=== PATIENT | male | born 1995 | race Caucasian/White ===

== ENCOUNTER 2019-02-10 22:39 | Inpatient (IN) | payer BC ==
[~2019-02-10] VITALS: Ht 177.8 cm; Wt 90.9 kg
[2019-02-10 22:54] VITALS: Ht 177.8 cm; Wt 90.9 kg
--- NOTE | 2019-02-10 23:17 | NUR ---
PT PRESENTED TO ED FOR ABDOMINAL PAIN, NAUSEA, VOMITING, AND DIZZINESS X 30 MIN POLICY VALUE CALCULATOR. FAMILY STATES "HE WAS EATING WINGS AT HOME THEN HE JUST STATED WITH THE NAUSEA AND VOMITING. HE SAYS HIS STOMACH IS ON FIRE". PT IS ACTIVELY VOMITING AT BEDSIDE. PT APPEARS PALE AND DIAPHORETIC. PT STATES DIZZINESS AND GENERALIZED WEAKNESS AFTER HE BEGAN VOMITING. PT IS GAURDING STOMACH LAYING ON GURNEY. BREATHING EVEN AND UNLABORED. FAMILY AT BEDSIDE. WILL CONTINUE TO MONITOR. PT PROVIDED WITH NEW EMESIS BAG AND TISSUES. PT PROVIDED WITH BLANKET FOR COMFORT.
--- NOTE | 2019-02-10 23:55 | NUR ---
4MG ZOFRAN GIVEN PER PROTOCOL FOR N/V. MADE AWARE
--- NOTE | 2019-02-11 00:08 | NUR ---
MEDICATION ADMINISTERED PER MD ORDER. NS BOLUS STARTED
--- NOTE | 2019-02-11 00:10 | NUR ---
LAB AT BEDSIDE
--- NOTE | 2019-02-11 00:23 | NUR ---
PT REMOVED CARDIC MONITOR. EDUCATED PT ON NEED TO KEEP MONITOR ON. CM PLACED BACK ON PT. NSR ON MONITOR.
--- NOTE | 2019-02-11 00:24 | NUR ---
EDUCATED PT AND FAMILY ON NEED TO OBTAIN URINE SAMPLE. PT AND FAMILY ACKNOWLEDGED. URINAL PLACED AT BEDSIDE.
[2019-02-11 00:27] LABS: BASOPHIL % 0.1 % (0-2); PLATELET COUNT 154 x10^3mcL (130-400); RED CELL DISTRIBUTION WIDTH 12.4 % (11.5-14.5)
--- NOTE | 2019-02-11 00:34 | NUR ---
PT STILL C/O ABOMINAL PAIN AT THIS TIME. NO ACTIVE VOMITING NOTED. PT STILL APEARS UNCOMFORTABLE. ATTEMPTED TO PROVIDE COMFORT MEASURES FOR PT. DR GRAY MADE AWARE. WILL CONTINUE TO MONITOR. CM AND [address]
[2019-02-11 00:55] LABS: CALCIUM 10.2 mg/dL (8.5-10.1); CARBON DIOXIDE 21.5 mmol/L (21-32); CHLORIDE SERUM 103 mmol/L (98-107); CREATININE SERUM 1.2 mg/dL (0.7-1.3); GFR1 > 60 mL/min; GLUCOSE SERUM 150 mg/dL (74-106); SODIUM SERUM 145 mmol/L (136-145)
[2019-02-11 00:59] LABS: ALBUMIN 4.8 g/dL (3.4-5.0); ALKALINE PHOSPHATASE 84 U/L (46-116); ALT/SGPT 22 U/L (16-63); AST/SGOT 11 U/L (15-37); BILIRUBIN TOTAL 0.5 mg/dL (0.20-1.00); LIPASE 94 IU/L (73-393)
[2019-02-11 01:00] LABS: TOTAL PROTEIN, SERUM 8.5 g/dL (6.4-8.2)
--- NOTE | 2019-02-11 01:58 | NUR ---
PT BEGAN TO ACTIVELY VOMIT AT BEDSIDE AND C/O ADBOMINAL PAIN 06/06. DR GRAY MADE AWARE. AWAITING ORDERS AT THIS TIME.
--- NOTE | 2019-02-11 02:25 | NUR ---
PT MEDICATED PER MD ORDERS. PT AWAKE AND ALERT. CM AND [address] PT IN NAD. BREATHING EVEN AND UNLABORED. IV FLUIDS RUNNING AT ORDERED RATE. FAMILY AT BEDSIDE. WILL CONTINUE TO MONITOR.
--- NOTE | 2019-02-11 02:52 | NUR ---
NO ACTIVE VOMITING NOTED. PT OBSERVED RESTING WITH EYES CLOSED EASILY AROUSABLE. IV FLUIDS RUNNING AT ORDERED RATE. PT A&0X4 IN NAD. BREATHING EVEN AND UNLABORED. PT IN POSITION OF COMFORT. WILL CONTINUE TO MONITOR.
[2019-02-11 02:59] LABS: UA SPECIFIC GRAVITY 1.015 (1.005-1.035); microscopic required? YES; urine erythrocyte TRACE (NEGATIVE)
--- NOTE | 2019-02-11 03:47 | NUR ---
PT OBSERVED SLEEPING ON GURNEY IN NAD. BREATHING EVEN AND UNLABORED. PT EASILY AROUSABLE. CM AND [address] NO ACTIVE VOMITING AT THIS TIME. FAMILY AT BEDSIDE. WILL CONTINUE TO MONITOR.
--- NOTE | 2019-02-11 04:52 | NUR ---
PT RESTING IN POSITION OF COMFORT IN NAD. BREATHING EVEN AND UNLABORED. PT SLEEPING BUT EASILY AROUSABLE. NO ACTIVE VOMITING. LIGHTS OFF FOR PT COMFORT. WILL CONTINUE TO MONITOR.
--- NOTE | 2019-02-11 05:38 | NUR ---
REPORT GIVEN TO RAFI[facility] BOX
--- NOTE | 2019-02-11 05:45 | NUR ---
PT TAKEN TO [facility] BED 257B AT THIS TIME IN NAD VIA WHEELCHAIR. PT AWAKE AND ALERT, SPEAKING FULL CLEAR SENTENCES. BREATHING EVEN AND UNLABORED. PT VERBALIZED UNDERSTANDING OF PLAN OF CARE. PT ACCOMPANIED BY AMANDA EMT AND FAMILY MEMBER.
--- NOTE | 2019-02-11 05:47 | NUR ---
RECEIVED PT FROM ED. PT AOX4. DENIES BISHOP/DIZZINESS. MED SURG PT. DENIES CP/PRESSURE. IV TO LAC, INTACT AND PATENT. BED IN LOWEST POSITION. CALL LIGHT WITHIN REACH. WILL CONTINUE TO MONITOR.
[2019-02-11 05:55] VITALS: BP 147/69
--- NOTE | 2019-02-11 07:15 | NUR ---
AAO X4.C/O MILD ABD'L DISCOMFORT.NO N/V AT THE MOMENT.LUNGS CLEAR.PT NONE TELE.IV SALINE LOCKED.CALL LIGHT WITHIN REACH.INSTRUCTED TO CALL FOR ANY PAIN/DISCOMFORT.WILL CONTINUE TO MONITOR PT.
[2019-02-11 08:54] VITALS: BP 143/74
--- NOTE | 2019-02-11 09:32 | NUR ---
GAVE PT NORCO FOR C/O ABD'L PAIN AT 7/10 PAIN SCALE.WILL CONTINUE TO MONITOR.
--- NOTE | 2019-02-11 10:32 | NUR ---
RECHECKED PAIN LEVEL.CLAIMS TO BE COMFORTABLE AT THE MOMENT.
--- NOTE | 2019-02-11 11:00 | NUR ---
PT VOMITTED ONCE.WILL GIVE PHENERGAN ORDERED PRN.
--- NOTE | 2019-02-11 11:11 | NUR ---
GAVE PT PHENERGAN 12.5 MG IVP ORDERED PRN FOR C/O N/V.WILL CONTINUE TO MONITOR.
--- NOTE | 2019-02-11 12:11 | NUR ---
WENT TO RECHECK PT.CLAIMS TO BE MORE COMFORTABLE.NO NAUSEA AND VOMITTING NOTED.
[2019-02-11 16:15] LABS: AMPHETAMINE QUAL UR NONE DETECTED (See below)
[2019-02-11 16:55] VITALS: BP 111/68
--- NOTE | 2019-02-11 18:27 | NUR ---
NO SIGNIFICANT CHANGE NOTED.WILL ENDORSE TO NEXT SHIFT.
--- NOTE | 2019-02-11 18:29 | NUR ---
NO SIGNIFICANT CHANGE NOTED.WILL ENDORSE TO NEXT SHIFT.
--- NOTE | 2019-02-11 19:20 | NUR ---
REPORT RECIEVED FROM DAY SHIFT RN. PATIENT WAS SEEN AND IS RESTING COMFORTABLY IN BED. BREATHING EVEN ON ROOM AIR. NO SOB OR RESP DISTRESS NOTED. PATIENT STATES HE DOES HAVE FROM CHEST DISCOMFORT FROM DRY HEAVING YESTERDAY, BUT IT'S NOT HEART RELATED. DENIES PAIN. DENIES N/V. IV TO THE LAC, SL. PATENT AND INTACT. NO REDNESS OR SWELLING NOTED. COMFORT AND SAFETY MEASURES MAINTAINED. BED IS LOCKED AND IN THE LOWEST POSITION. SIDE RAILS UP X2. CALL LIGHT IS WITHIN REACH. WILL CONTINUE TO MONITOR.
[2019-02-11 20:57] VITALS: BP 133/82
--- NOTE | 2019-02-11 21:19 | NUR ---
PATIENT'S STOOL COLLECTED FOR C&S AND WBC. DIGITAL EXPERIENCE MANAGER WALKED IT DOWN TO THE LAB.
--- NOTE | 2019-02-12 00:36 | NUR ---
PATIENT IS RESTING IN BED COMFORTABLY. NO DISTRESS NOTED. BREATHING EVEN ON ROOM AIR. NO C/O PAIN. DENIES N/V. IV TO THE LAC INFUSING ABX WELL. PATENT AND INTACT. NO REDNESS OR SWELLING NOTED. SAFETY MEASURES IN PLACE. CALL LIGHT IS WITHIN REACH. WILL CONTINUE TO MONITOR
[2019-02-12 06:00] VITALS: BP 130/82
[2019-02-12 06:28] LABS: CARBON DIOXIDE 25.6 mmol/L (21-32); CHLORIDE SERUM 105 mmol/L (98-107); CREATININE SERUM 1.2 mg/dL (0.7-1.3); GFR1 > 60 mL/min; GLUCOSE SERUM 145 mg/dL (74-106); POTASSIUM SERUM 3.5 mmol/L (3.5-5.1); SODIUM SERUM 143 mmol/L (136-145)
[2019-02-12 06:34] LABS: BASOPHIL % 0.3 % (0-2); PLATELET COUNT 167 x10^3mcL (130-400); RED CELL DISTRIBUTION WIDTH 12.6 % (11.5-14.5)
--- NOTE | 2019-02-12 06:52 | NUR ---
PATIENT SLEPT IN LONG INTERVALS THROUGHOUT THE NIGHT. NO ACUTE CHANGES NOTED. BREATHING EVEN ON ROOM AIR. NO DISTRESS NOTED. IV TO THE LAC INFUSING ABX WELL. PATENT AND INTACT. NO C/O PAIN THROUGHOUT THE NIGHT. DENIES N/V. COMFORT AND SAFETY MEASURS MAINTAINED. WILL ENDORSE CARE TO DAY SHIFT RN. CALL LIGHT IS WITHIN REACH.
--- NOTE | 2019-02-12 07:02 | NUR ---
C/O PAIN IN ABD AND NECK. PATIENT IS SPITTING UP SPUTUM/VOMITING SCANT AMOUNT. SCHEDULED REGLAN WAS ALREADY GIVE. PATIENT STATES, "MY STOMACH FEELS LIKE IT'S SPINNING." PATIENT IS REQUESTING MORPHINE. ADMINSITERED PRESCRIBED. EDUCATED PATIENT THAT DROWSINESS MAY OCCUR. PATIENT IS ALSO AWARE THAT N/V IS A POSS SIDE EFFECT. PATIENT VERBALIZED UNDERSTANDING. WILL ENDORSE REASSESSMENT TO DAY SHIFT RN.
--- NOTE | 2019-02-12 07:15 | NUR ---
RECEIVED PT IN SEVERE ABD'L PAIN AT 10/10 PAIN SCALE.CLAIM MORPHINE THAT WAS GIVEN BY NOC RN WAS NOT WORKING.ALSO VOMITTED X2.WILL GIVE PHENERGAN ORDERED PRN.LUNGS CLEAR.PT NONE-TELE.IV SALINE LOCKED.CALL LIGHT WITHIN REACH.INSTRUCTED TO CALL FOR ANY PAIN/DISCOMFORT.WILL CONTINUE TO MONITOR PT.
--- NOTE | 2019-02-12 07:26 | NUR ---
GAVE PHENERGAN 12.5 IVP FOR C/O N/V.
--- NOTE | 2019-02-12 07:45 | NUR ---
WENT TO RECHECK PT CLAIMS TO FEEL A LOT BETTER AFTER THE PHENERGAN.
[2019-02-12 09:05] VITALS: BP 145/78
--- NOTE | 2019-02-12 09:45 | NUR ---
CONSENT SIGNED FOR EGD.INSTRUCTED PT TO BE NPO.
--- NOTE | 2019-02-12 10:15 | NUR ---
REPORT GIVEN TO GI NURSE.
--- NOTE | 2019-02-12 10:53 | NUR ---
PT WENT DOWN TO GI LAB FOR EGD.
--- NOTE | 2019-02-12 11:09 | NUR ---
TALKED TO CLAIMS EGD IS NORMAL.PT HAS GALLSTONES.WILL NEED SURGICAL CONSULT.CALLED LEFT A MESSAGE.
[2019-02-12 12:01] LABS: ALBUMIN 4.5 g/dL (3.4-5.0)
--- NOTE | 2019-02-12 12:08 | NUR ---
PT BACK FR GI S/P EGD.DX:NORMAL.V/S= T=97.4,RP=656/70 (78),HR=77,RR=16, GLT5=333%.FAMILY AT BEDSIDE.INSTRUCTED PT TO KEEP NPO FOR HIDA SCAN.CALL LIGHT WITHIN REACH.WILL CONTINUE TO MONITOR PT.
[2019-02-12 12:25] LABS: BILIRUBIN DIRECT 0.18 mg/dL (0.0-0.2); BILIRUBIN TOTAL 0.89 mg/dL (0.20-1.00); TOTAL PROTEIN, SERUM 8.3 g/dL (6.4-8.2)
--- NOTE | 2019-02-12 13:17 | NUR ---
TALKED TO PT WILL HAVE SURGERY TOMORROW AT 12 NOON.CONSENT SIGNED.ALSO CANCELLED THE HIDA SCAN.
--- NOTE | 2019-02-12 13:28 | NUR ---
PAGED FOR + H PYLORI.LEFT A MESSAGE.
--- NOTE | 2019-02-12 14:40 | NUR ---
INFORMED OF THE H-PYLORI +. PER WILL ORDER ANTIBIOTIC TOMORROW.ALSO INFORMED HIM ABOUT CANCELLING THE HIDA SCAN AND WILL DO LAP JUANJO TOMORROW.
[2019-02-12 18:55] VITALS: BP 144/82
--- NOTE | 2019-02-12 20:58 | NUR ---
PATIENT RECEIVED AWAKE, ALERT, ORIENTED X4 IN BED. C/O ABDOMINAL PAIN. FAMILY MEMBER AT THE BEDSIDE. RESPIRATION EVEN AND UNLABORED, ON ROOM AIR. VOIDING FREELY WITHOUT DIFFICULTY. AMBULATORY. SKIN DRY AND INTACT. SALINE LOCK TO LEFT ANTECUBITAL AREA PATENT AND INTACT. ON FULL LIQUID DIET. WILL CONTINUE TO MONITOR.
--- NOTE | 2019-02-12 21:08 | NUR ---
PATIENT COMPLAINED OF SHARP, ABDOMINAL PAIN, 10/10 AND NAUSEA. MEDICATED WITH TORADOL 15 MG IVP AND PHENERGAN 12.5 MG IVP ORDERED. WILL CONTINUE TO MONITOR.
[2019-02-12 21:20] VITALS: BP 156/98
[2019-02-13 05:38] VITALS: BP 147/69
[2019-02-13 06:25] LABS: BASOPHIL % 0.3 % (0-2); PLATELET COUNT 172 x10^3mcL (130-400); RED CELL DISTRIBUTION WIDTH 12.4 % (11.5-14.5)
[2019-02-13 06:49] LABS: ALBUMIN 4.4 g/dL (3.4-5.0); ALKALINE PHOSPHATASE 71 U/L (46-116); ALT/SGPT 32 U/L (16-63); AST/SGOT 12 U/L (15-37); BILIRUBIN TOTAL 1.1 mg/dL (0.20-1.00); CALCIUM 9.6 mg/dL (8.5-10.1); CHLORIDE SERUM 104 mmol/L (98-107); CREATININE SERUM 1.1 mg/dL (0.7-1.3); GFR1 > 60 mL/min; GLUCOSE SERUM 100 mg/dL (74-106); LIPASE 291 IU/L (73-393); POTASSIUM SERUM 3.8 mmol/L (3.5-5.1); SODIUM SERUM 141 mmol/L (136-145); TOTAL PROTEIN, SERUM 8.1 g/dL (6.4-8.2)
--- NOTE | 2019-02-13 06:58 | NUR ---
PATIENT RESTING IN BED. RESPIRATION EVEN AND UNLABORED, ON ROOM AIR. DENIES PAIN AT THIS TIME. ON NPO, FOR SURGERY THIS AM. RE-INSERTED A NEW IV SITE ON THE LEFT HAND. CHLORHEXIDINE BATH DONE. ASSISTED WITH NEEDS. SAFETY OBSERVED. PLACED BED IN THE LOWEST POSITION. PLACED CALL LIGHT WITHIN REACH AT ALL TIMES.
--- NOTE | 2019-02-13 07:30 | NUR ---
PT ENDORSE TO ME THIS MORNING. LAYING IN BED RESTING. AA/O X4 BREATHING EVEN AND UNLABORED ON RA, NO ACUTE RESP DISTRESS OR SOB NOTED. MEDSURG. DENIES ANY CP OR PRESSURE. BOWEL SOUNDS ACTIVE IN ALL FOUR QUADS, MEDICATED PER EMAR FOR ABD PAIN AT THIS TIME. VOIDS FREELY. AMB. IV TO HE L HAND INTACT AND PATENT. NO REDNESS OR SWELLING NOTED. WILL CONTINUE PLAN OF CARE.
[2019-02-13 08:54] VITALS: BP 152/90
[2019-02-13 09:43] VITALS: BP 133/86
--- NOTE | 2019-02-13 11:56 | NUR ---
PT BEING TAKEN TO GI LAB FOR PROCEDURE. HEPLOCKED PT. BREATHING EVEN AND UNLABORED ON RA. NO ACUTE RESP DISTRESS OR SOB NOTED. FAMILY BY HIS SIDE. WILL CONTINUE TO MONITOR WHEN PT RETURNS.
[2019-02-13 17:00] VITALS: BP 150/75
--- NOTE | 2019-02-13 17:00 | NUR ---
PT BACK FROM GI LAB. BREATHING EVEN AND UNLABORED ON RA. NO ACUTE RESP DISTRESS OR SOB NOTED. VS 150/75, HR 79, RESP 16, DENIES ANY CP OR PRESSURE/ OR ABD PAIN, MEDICATED PER EMAR. RECONNECTED PT BACK TO D5-45% AT 100ML/HR,WILL CONTINUE TO MONITOR. FAMILY AT BEDSIDE.
--- NOTE | 2019-02-13 19:25 | NUR ---
RECEIVED PT FROM PREVIOUS SHIFT NURSE. PT AOX4. DENIES BISHOP/DIZZINESS. MED SURG PT. DENIES CP/PRESSURE. DENIES SOB/DIFFICULTY BREATHING, ON RA. IV TO L. HAND, INTACT AND PATENT. BED IN LOWEST POSITION. CALL LIGHT WITHIN REACH. WILL CONTINUE TO MONITOR.
--- NOTE | 2019-02-13 19:32 | NUR ---
NO ACUTE CHANGES, NO ACUTE RESP DISTRESS OR SOB NOTED.DENIES ANY ABD PAIN OR DISCOMFORT/ MEDICATED PER EMAR. WILL ENDORSE TO INCOMING RN.
[2019-02-13 21:00] VITALS: BP 143/96
[2019-02-14 05:36] VITALS: BP 143/94
[2019-02-14 06:31] LABS: BASOPHIL % 0.1 % (0-2); PLATELET COUNT 169 x10^3mcL (130-400); RED CELL DISTRIBUTION WIDTH 12.4 % (11.5-14.5)
[2019-02-14 06:57] LABS: ALBUMIN 4.3 g/dL (3.4-5.0); ALKALINE PHOSPHATASE 84 U/L (46-116); ALT/SGPT 144 U/L (16-63); AST/SGOT 144 U/L (15-37); BILIRUBIN TOTAL 1.69 mg/dL (0.20-1.00); CALCIUM 9.7 mg/dL (8.5-10.1); CARBON DIOXIDE 25.5 mmol/L (21-32); CHLORIDE SERUM 100 mmol/L (98-107); GFR1 > 60 mL/min; GLUCOSE SERUM 119 mg/dL (74-106); POTASSIUM SERUM 3.3 mmol/L (3.5-5.1); SODIUM SERUM 139 mmol/L (136-145); TOTAL PROTEIN, SERUM 8.1 g/dL (6.4-8.2)
--- NOTE | 2019-02-14 07:30 | NUR ---
PT ENDORSE TO ME THIS MORNING. LAYING IN BED RESTING. AA/O X4, BREATHING EVEN AND UNLABORED ON RA, NO ACUTE RESP DISTRESS OR SOB NOTED. REMAINS MEDSURG. BOWEL SOUNDS ACTIVE IN ALL FOUR QUADS, DENIES ANY ABD PAIN OR DISCOMFORT/ MEDICATED PER EMAR. 4 SMALL INCISIONS NOTED/ CDI. BOWEL SOUNDS ACTIVE IN ALL FOUR QUADS. VOIDS FREELY. ENCOURAGING PT TO AMB MUSCH POSSIBLE AND TO USE I.S. PT AGREED. IV TO THE L HAND INTACT AND PATENT. WILL CONTINUE TO MONITOR.
[2019-02-14 08:43] VITALS: BP 169/109
[2019-02-14 09:51] VITALS: BP 142/63
[2019-02-14 12:58] VITALS: BP 142/63
--- NOTE | 2019-02-14 14:48 | NUR ---
DISCHARGE INSTRUCTIONS GIVEN TO PT INCLUDING MEDICAL FOLLOW-UP W/ DR. LAWRENCE. NEW PRESCRIPTION REVIEWED W/ THE PATIENT. ADDITIONAL EDUCATIONAL MATERIALS GIVEN TO THE PT. PT VERBALIZES UNDERSTANDING. IV REMOVED FROM THE LEFT HAND, CATHETER INTACT, NO ERYTHEMA/SWELLING NOTED. INSTRUCTED PT TO CALL WHEN PT IS READY TO GO
== END 2019-02-14 14:56 | disposition home or self-care (01) | DRG 419 ==
LOC: ED 22:39 → MU 02-11 03:31
PROVIDERS: Emergency Medicine; Internal Medicine Gastroenterology; Surgery; ADMIT Internal Medicine
PROC: 0DB68ZX Excision of Stomach, Via Natural or Artificial Opening Endoscopic, Diagnostic (ICD-10-PCS; principal; 2019-02-12 10:30)
PROC: 0FT44ZZ Resection of Gallbladder, Percutaneous Endoscopic Approach (ICD-10-PCS; 2019-02-13)
DX: K80.00 Calculus of gallbladder with acute cholecystitis without obstruction (principal); K52.9 Noninfective gastroenteritis and colitis, unspecified; E87.6 Hypokalemia; I10 Essential (primary) hypertension; R73.9 Hyperglycemia, unspecified; F12.90 Cannabis use, unspecified, uncomplicated; D72.829 Elevated white blood cell count, unspecified; Z90.49 Acquired absence of other specified parts of digestive tract; Z79.899 Other long term (current) drug therapy
CPT/HCPCS: 43235; 87046; 87046-59; 94150; G0378; J0330; J0690; J1170; J1200; J1610; J1885; J1956; J2060; J2175; J2250; J2270; J2310; J2405; J2550; J2704; J2710; J2765; J3010; J3490; J7030; J7040; J7120; Q0092; Q9967

== ENCOUNTER 2019-02-17 11:21 | Emergency (ER) | payer BC ==
[~2019-02-17] VITALS: Ht 175.3 cm; Wt 86.2 kg
[2019-02-17 11:23] VITALS: Ht 175.3 cm; Wt 86.2 kg
[2019-02-17 12:51] LABS: BASOPHIL % 0.8 % (0-2); PLATELET COUNT 163 x10^3mcL (130-400); RED CELL DISTRIBUTION WIDTH 12.2 % (11.5-14.5)
[2019-02-17 13:07] LABS: CALCIUM 9.3 mg/dL (8.5-10.1); CARBON DIOXIDE 19.7 mmol/L (21-32); CHLORIDE SERUM 103 mmol/L (98-107); CREATININE SERUM 0.9 mg/dL (0.7-1.3); GFR1 > 60 mL/min; GLUCOSE SERUM 106 mg/dL (74-106); POTASSIUM SERUM 3.4 mmol/L (3.5-5.1); SODIUM SERUM 137 mmol/L (136-145)
[2019-02-17 13:11] LABS: ALBUMIN 3.8 g/dL (3.4-5.0); ALKALINE PHOSPHATASE 91 U/L (46-116); ALT/SGPT 105 U/L (16-63); AST/SGOT 28 U/L (15-37); BILIRUBIN TOTAL 0.91 mg/dL (0.20-1.00); LIPASE 214 IU/L (73-393); TOTAL PROTEIN, SERUM 7.7 g/dL (6.4-8.2)
[2019-02-17 14:44] VITALS: BP 145/90
== END 2019-02-17 14:45 | disposition home or self-care (01) ==
LOC: ED 11:21
PROVIDERS: Emergency Medicine
DX: R10.33 Periumbilical pain (principal); Z90.49 Acquired absence of other specified parts of digestive tract
CPT/HCPCS: J2060; J2270; J2405; J7030

== ENCOUNTER 2019-11-06 11:05 | Emergency (ER) | payer OTHER, BC ==
[~2019-11-06] VITALS: Ht 177.8 cm; Wt 82.1 kg
[2019-11-06 11:09] VITALS: Ht 177.8 cm; Wt 82.1 kg
[2019-11-06 13:34] VITALS: BP 128/75
== END 2019-11-06 13:34 | disposition home or self-care (01) ==
LOC: ED 11:05
DX: S16.1XXA Strain of muscle, fascia and tendon at neck level, initial encounter (principal); S09.8XXA Other specified injuries of head, initial encounter; M54.5 Low back pain; V49.9XXA Car occupant (driver) (passenger) injured in unspecified traffic accident, initial encounter; Y93.I9 Activity, other involving external motion; Y92.413 State road as the place of occurrence of the external cause; Y99.8 Other external cause status

== ENCOUNTER 2020-03-03 23:39 | Inpatient (IN) | payer BC ==
[~2020-03-03] VITALS: Ht 177.8 cm; Wt 85.4 kg
[2020-03-03 23:52] VITALS: Ht 177.8 cm; Wt 85.4 kg
[2020-03-04 01:56] LABS: PLATELET COUNT 173 x10^3mcL (130-400); RED CELL DISTRIBUTION WIDTH 11.8 % (11.5-14.5)
[2020-03-04 02:03] LABS: CALCIUM 10.4 mg/dL (8.5-10.1); CARBON DIOXIDE 22.7 mmol/L (21-32); CHLORIDE SERUM 100 mmol/L (98-107); CREATININE SERUM 1.3 mg/dL (0.7-1.3); GFR1 > 60 mL/min; GLUCOSE SERUM 149 mg/dL (74-106); POTASSIUM SERUM 3.2 mmol/L (3.5-5.1); SODIUM SERUM 139 mmol/L (136-145)
[2020-03-04 02:08] LABS: ALKALINE PHOSPHATASE 79 U/L (46-116); ALT/SGPT 28 U/L (16-63); AST/SGOT 17 U/L (15-37); BILIRUBIN TOTAL 1.28 mg/dL (0.20-1.00); LIPASE 101 IU/L (73-393)
[2020-03-04 02:16] LABS: ALBUMIN 5.6 g/dL (3.4-5.0); TOTAL PROTEIN, SERUM 9.7 g/dL (6.4-8.2)
[2020-03-04 02:43] LABS: UA SPECIFIC GRAVITY >=1.030 (1.005-1.035); microscopic required? YES; urine erythrocyte TRACE (NEGATIVE)
[2020-03-04 06:42] VITALS: BP 141/86
[2020-03-04 09:11] VITALS: BP 118/81
[2020-03-04 12:15] LABS: AMPHETAMINE QUAL UR NONE DETECTED (See below)
[2020-03-04 17:01] VITALS: BP 119/70
[2020-03-04 21:00] VITALS: BP 132/78
[2020-03-05 05:40] VITALS: BP 109/76
[2020-03-05 06:56] LABS: BASOPHIL % 0.2 % (0-2); PLATELET COUNT 133 x10^3mcL (130-400); RED CELL DISTRIBUTION WIDTH 12.3 % (11.5-14.5)
[2020-03-05 06:58] LABS: CALCIUM 8.8 mg/dL (8.5-10.1); CARBON DIOXIDE 23.7 mmol/L (21-32); CHLORIDE SERUM 101 mmol/L (98-107); CREATININE SERUM 1.3 mg/dL (0.7-1.3); GFR1 > 60 mL/min; GLUCOSE SERUM 128 mg/dL (74-106); POTASSIUM SERUM 3.1 mmol/L (3.5-5.1); SODIUM SERUM 137 mmol/L (136-145)
[2020-03-05 09:11] VITALS: BP 140/81
[2020-03-05 12:13] VITALS: BP 150/87
[2020-03-05 12:41] VITALS: BP 150/87
== END 2020-03-05 12:58 | disposition home or self-care (01) | DRG 392 ==
LOC: ED 23:39 → MU 03-04 02:46 → ED 03-04 03:40 → MU 03-04 03:57
PROVIDERS: Emergency Medicine; Internal Medicine Gastroenterology; ADMIT Internal Medicine; ATTEND Internal Medicine
DX: K52.9 Noninfective gastroenteritis and colitis, unspecified (principal); E87.2 Acidosis; K29.70 Gastritis, unspecified, without bleeding; D72.829 Elevated white blood cell count, unspecified; E87.6 Hypokalemia; F12.10 Cannabis abuse, uncomplicated; Z90.49 Acquired absence of other specified parts of digestive tract
CPT/HCPCS: G0378; J1630; J1885; J2060; J2405; J2550; J2765; J3480; J7030

== ENCOUNTER 2020-03-06 00:27 | Emergency (ER) | payer BC ==
[~2020-03-06] VITALS: Ht 177.8 cm; Wt 86.4 kg
[2020-03-06 03:01] LABS: BASOPHIL % 0.3 % (0-2); PLATELET COUNT 143 x10^3mcL (130-400); RED CELL DISTRIBUTION WIDTH 11.9 % (11.5-14.5)
[2020-03-06 03:09] LABS: ALBUMIN 4.9 g/dL (3.4-5.0); ALKALINE PHOSPHATASE 61 U/L (46-116); ALT/SGPT 33 U/L (16-63); AST/SGOT 19 U/L (15-37); BILIRUBIN TOTAL 1.47 mg/dL (0.20-1.00); CALCIUM 9.2 mg/dL (8.5-10.1); CARBON DIOXIDE 24.3 mmol/L (21-32); CHLORIDE SERUM 102 mmol/L (98-107); CREATININE SERUM 1.1 mg/dL (0.7-1.3); GFR1 > 60 mL/min; GLUCOSE SERUM 125 mg/dL (74-106); LIPASE 142 IU/L (73-393); POTASSIUM SERUM 3.4 mmol/L (3.5-5.1); SODIUM SERUM 139 mmol/L (136-145)
[2020-03-06 03:10] LABS: TOTAL PROTEIN, SERUM 8.5 g/dL (6.4-8.2)
[2020-03-06 04:00] VITALS: BP 147/99
== END 2020-03-06 04:00 | disposition home or self-care (01) ==
LOC: ED 00:27
PROVIDERS: Emergency Medicine
DX: R10.13 Epigastric pain (principal); R11.2 Nausea with vomiting, unspecified; Z90.49 Acquired absence of other specified parts of digestive tract; Z98.890 Other specified postprocedural states
CPT/HCPCS: J1885; J2270; J2405; J7030